=== PATIENT | male | born 1975 | race Caucasian/White ===

== ENCOUNTER 2016-10-09 09:44 | Observation (INO) ==
[2016-10-09] MEDS ORDERED: Ipratropium/Albuterol Neb 3 ML IH ONE (10:08)
[2016-10-09] MEDS ORDERED: 0.9 % Sodium Chloride 1,000 ML IVC ONE (10:08)
[2016-10-09] MEDS ORDERED: methylPREDNISolone 125 MG/2 ML VIAL IVP ONE (10:08)
[2016-10-09 10:31] LABS: ABG Base Excess 10.7 mEq/L (-2.0 to 3.0); ABG HCO3 33.3 mEQ/L (21-27); ABG PCO2 40 mmHg (35-45); ABG PH 7.54 pH Units (7.32-7.45); ABG PO2 92 mmHg (85-104); ABG TCO2 35.4 mEq/L (20-26)
[2016-10-09 10:32] LABS: ABG Oxygen Saturation 98 % (95-98); Blood Gas FiO2 28 %
[2016-10-09 10:35] LABS: Basophils % 0.2 %; Eosinophils # 0.2 K/mcL (0.0-0.6); Eosinophils % 1.7 %; Hematocrit 42.7 % (37.5-50.1); Hemoglobin 14.5 g/dL (12.9-16.9); Immature Granulocytes % 0.4 % (0-4); Lymphocytes # 2.9 K/mcL (0.6-4.6); Lymphocytes % 27.1 %; Mean Corpuscular Hemoglobin 27.9 pg (28.0-33.3); Mean Corpuscular Volume 82.3 fL (83.0-100.0); Mean Platelet Volume 11.5 fL (9.4-12.4); Monocytes # 0.9 K/mcL (0.0-1.3); Monocytes % 8.3 %; Neutrophils # 6.8 K/mcL (1.6-8.9); Platelet Count 223 K/mcL (140-400); Red Blood Count 5.19 M/mcL (4.19-5.50); Red Cell Distribution Width 13.6 % (11.5-14.5); Segmented Neutrophils % 62.3 %
[2016-10-09 10:43] LABS: INR 1.1; Prothrombin Time 11.8 Seconds (9.4-12.1)
[2016-10-09 10:46] LABS: Activated Partial Thrombo Time 35.9 Seconds (26.0-36.0)
[2016-10-09 10:49] LABS: Alanine Aminotransferase 38 Units/L (0-55); Albumin 3.6 g/dL (3.5-5.0); Alkaline Phosphatase 100 Units/L (38-126); Aspartate Amino Transferase 20 Units/L (5-34); BUN/Creatinine Ratio 14 (6-26); Bilirubin,Direct 0.1 mg/dL (0.0-0.5); Bilirubin,Indirect 0.3 mg/dL (0.0-1.2); Bilirubin,Total 0.4 mg/dL (0.2-1.2); Blood Urea Nitrogen 13 mg/dL (8-26); Calcium 9.4 mg/dL (8.6-10.8); Carbon Dioxide 28 mEq/L (19-29); Chloride 92 mEq/L (98-109); Globulin 3.5 g/dL (2.4-3.5); Glucose 83 mg/dL (70-99); Osmolality,Calculated 283 (280-300); Sodium 137 mEq/L (136-145); Total Protein 7.1 g/dL (6.0-8.3); eGFR For African Americans > 60 (> 60); eGFR For Non-African Americans > 60 (> 60)
[2016-10-09 10:51] LABS: Potassium 2.3 mEq/L (3.5-4.5)
--- NOTE | 2016-10-09 11:31 | Emergency Department Note ---
START Narrative - START START: I examined this patient and my medical decision-making was reviewed with the PRECISION LENS CENTERER AND EDGER/PA/Advanced Practice Nurse/Resident Physician. I agree with the documented findings, disposition and treatment plan as described except to the extent set forth below. ED attending note: Patient seen with physician bilingual medical assistant Staci Donald. Please see a copy of his note for details of the H&P, evaluation, management and disposition of this patient. We independently had [id number] contact with the patient Briefly: A 11-year-old male sent over from the pulmonology clinic for tachypnea at a rate of 45. Has been worked up and the CT scan shows a questionable pneumonia. Otherwise no acute findings. Patient was not wheezing nor was he hypoxic. Chest lightheaded. ED workup was negative. Patient being admitted for tachypnea etiology unclear.
[2016-10-09] MEDS ORDERED: Ondansetron 4 MG/2 ML VIAL IVP PRN (11:56)
[2016-10-09] MEDS ORDERED: Acetaminophen 325 MG TABLET PO PRN (11:56)
[2016-10-09] MEDS ORDERED: *HR* HYDROcodone/Acet 5/325 mg TABLET PO PRN (11:56)
[2016-10-09] MEDS ORDERED: Naloxone 0.4 MG/ML INJ IVP PRN (11:56)
--- NOTE | 2016-10-09 12:14 | Internal Med History&Physical ---
Date of Encounter: 10/09/16 Time of Encounter: 11:30 Assessment and Plan (1) Respiratory distress, acute Current visit: Yes Status: Acute Patient with acute on chronic respiratory distress associated with episodes of productive cough. In ED, patient was very tachypneic with RR 45, he was placed in non-rebreather mask and after receiving nebulizations, IV Solu-Medrol and oral potassium, patient is currently breathing normally and in no distress at rest. He reports that his shortness of breath and cough get worse on exertion. Chest x-ray was negative for any acute process. Given his history of exposure to inhalants and prior non-diagnostic CTA chest due to motion, I will check high resolution CT of the chest to rule out any ILD. However, his symptoms could have been exacerbated due to his severe hypokalemia. Continue albuterol/Atrovent nebulizations. No need for IV steroids at this time. Tolerating well 2L NC. (2) Cough Current visit: Yes Status: Acute Chronic cough. Plan as above (3) Hypokalemia Current visit: Yes Status: Acute Severe hypokalemia. K was 2.3. Likely secondary to use of hydrochlorothiazide and not been taking his oral potassium supplementation. Patient was taken oral potassium supplementation for many years but last month when he got his refill of all his medications, he did not receive a prescription for oral potassium. He thought his PCP stopped it. He has not had any blood tests for the past 3 months. No EKG changes. Recheck potassium at 2 PM. Patient received 60 mg of oral potassium. I will give 20 mg IV KCL Check magnesium. (4) HTN (hypertension) Current visit: Yes Status: Acute Well-controlled. Holding home dose of hydrochlorothiazide due to severe hypokalemia. Continue to monitor. Oral hydralazine as needed. Qualifiers: Hypertension type: essential hypertension Qualified Code(s): I10 - Essential (primary) hypertension Internal Medicine - H&P: HPI Chief complaint: Difficulty breathing this morning. Admitted From: Home Plans for Post Hospital Care: Home History of present illness: Mr. Damon is a 41 year old male with past medical history hypertension, and hyperlipidemia who takes HCTZ and potassium supplementation. Before [place], patient developed progressive shortness of breath at exertion and productive cough. He was treated at that time for an upper respiratory infection and sent home on prednisone and inhalers. His symptoms persisted and he was again evaluated for shortness of breath and chronic cough. He underwent a CTA of the chest that was of poor quality because of motion but showed early signs of LLL pneumonia, and was treated with azithromycin and continued using inhalers. His symptoms improved and he was feeling much better so he went back to work this past Thursday. At work, he developed difficulty in breathing after walking half a mile. His symptoms improved after he rested outside his workplace. He went to his primary care physician and was prescribed inhalers (Qvar and Proair) and Singulair. He was referred to see the knot tying operator this morning and at his office, the patient was noted to be in severe respiratory distress, having bad coug spells, and feeling as if his muscles in his hands and face were twitching and he was about to pass out. He was immediately sent to our ED. In the ED, he was tachypneic wirh RR 45 and potassium was 2.3. He was placed in a non-rebreather mask and received 60 mg oral potassium, nebulizations and IV 125 mg solumedrol. Hi symptoms improved and he is now in [facility]. Patient works at [employer] and reports being exposed to the fumes of diesel, paint, and other inhalants. He has worked there for 17 years and has never had any trouble. No recent travel. He has dogs and they are healthy. Sick contacts at home. His had him respiratory infection early September but that has resolved. Patient was taken oral potassium supplementation for many years but last month when he got his refill all his medications, he never received a prescription for oral potassium. He felt his PCP as stopped it. He has not had any blood tests for the past 3 months. Past Med Surg Social Fam HX - Past Medical History Medical history: hyperlipidemia, hypertension Psychiatric history: no psych history - Past Surgical History Surgical History: no surgical history - Social History Smoking Status: Never smoker Alcohol use: none Drug use: none - Family History Father Hx Family Cardiac Disorders: Yes (CAD) Internal Medicine - H&P: Meds Azithromycin [Zithromax] 250 mg PO Q24H #5 tablet 09/08/16 [Rx] Hydrochlorothiazide 25 mg PO DAILY 09/08/16 [History] Potassium Chloride [K-Tab ER] 20 meq PO DAILY 09/08/16 [History] Simvastatin [Zocor] 40 mg PO HS 09/08/16 [History] Albuterol Sulfate [Proair Hfa] 2 puff IH Q4H PRN 10/09/16 [History] Beclomethasone Diprop 80mcg [Qvar 80 mcg] 1 puff IH BID 10/09/16 [History] Montelukast [Singulair] 10 mg PO DAILY 10/09/16 [History] Allergies No Known Allergies Allergy (Verified 09/08/16 16:18) All Systems PM: A 10-system review of systems was performed and is negative for pertinent findings except as documented above in the HPI. - Constitutional Vitals: Temp Pulse Resp BP Pulse Ox 0 F L 93 17 131/79 99 10/09/16 11:48 10/09/16 11:02 10/09/16 11:48 10/09/16 11:48 10/09/16 11:02 General appearance: Present: cooperative, A&O X 3, pleasant, no acute distress, answers questions appropriately Exam: Patient is speaking full sentences. He had a few cough spells. - Eye Eye exam: Present: PERRL, sclera anicteric - ENT ENT exam: Present: mucous membranes moist - Neck Neck exam general surgery: Present: supple, trachea midline. Absent: lymphadenopathy - Respiratory Additional comments: Diminished air entry bilaterally with Mild diffuse wheezes. No crackles. - Cardiovascular Cardiovascular exam: Present: RRR. Absent: systolic murmur - GI/Abdominal GI/Abdominal exam: Present: normal bowel sounds, soft. Absent: distended, tenderness - Extremities Exam Extremities exam: Present: radial pulses palpable and symetrical. Absent: pedal edema - Back Exam Back exam: Absent: CVA tenderness (L), CVA tenderness (R) - Neurological Exam Neurological exam: Present: alert, oriented X3, no focal deficits, strengths equal and symetr throughout. Absent: facial droop, speech deficit - Skin Skin exam: Present: dry. Absent: rash Internal Med - H&P Results - Labs CBC & Chem 7: 10/09/16 10:27 10/09/16 10:27
[2016-10-09] MEDS ORDERED: Potassium Chloride 20 MEQ, Lidocaine 1% 2 ML in D5% in Water 250 ML IVPB ONE (12:30)
[2016-10-09] MEDS ORDERED: hydrALAZINE 10 MG TABLET PO PRN (12:41)
[2016-10-09] MEDS: Ipratropium/Albuterol Neb 3 ML IH SCH ×4 (12:46→23:10)
[2016-10-09] MEDS ORDERED: Potassium Chloride 40 MEQ, Lidocaine 1% 2 ML in D5% in Water 500 ML IVPB ONE (14:32)
[2016-10-09 14:34] LABS: Magnesium 1.9 mg/dL (1.6-2.6)
--- NOTE | 2016-10-09 17:23 | Emergency Department Note ---
Disposition Clinical Impression: Dyspnea on exertion, Hypokalemia Disposition: Admitted As Inpatient Condition: Good General Adult HPI - General Chief complaint: ED Shortness of Breath/Dyspnea Stated complaint: KIP Time Seen by Provider: 10/09/16 09:52 Source: patient, family, other ([employer] Supervisor) Mode of arrival: private vehicle Limitations: no limitations Nursing Notes Reviewed: Yes Vital Signs Reviewed: Yes - History of Present Illness Pt Subjective Complaint: "Can't catch my breath", "Spasms in hands and tingling in face" Onset (ago): Just CARE SERVICES MANAGER (Patient had an appointment with the Yard General Car Supervisor this AM. After walking from the parking lot to the office he bacame very short of breath. When the award clerk saw him he sent the patient to the ER for evaluation as the patient was in respiratory distress.) Location: other (no pain, just KIP) Radiation: non-radiation Pain Scale: 0 Quality: other (cramping in hands - intermittently) Consistency: intermittent Improves with: rest Worsens with: other (walking - any exertion) Associated symptoms: Reports: shortness of breath. Denies: confusion, chest pain, cough, diaphoresis, fever/chills, headaches, loss of appetite, malaise, nausea/vomiting, rash, seizure, syncope, weakness Treatments Prior to Arrival: other ("cough and mild KIP at [place] time, diagnosed with Bronchitis, given meds and thought was getting better. Tried to go back to work on Thursday. Walked from parking lot to job site and became very short of breath. Saw PCP again. Was given more meds and a referral to see [employer] Supervisor. ") - Related Data Home Medications Medication Instructions Recorded Confirmed Hydrochlorothiazide 50 mg PO DAILY 09/08/16 10/09/16 Potassium Chloride [K-Tab ER] 10 meq PO DAILY 09/08/16 10/09/16 Simvastatin [Zocor] 10 mg PO HS 09/08/16 10/09/16 Albuterol Sulfate [Proair Hfa] 2 puff IH Q4H PRN 10/09/16 10/09/16 Beclomethasone Diprop 80mcg [Qvar 1 puff IH BID 10/09/16 10/09/16 80 mcg] Montelukast [Singulair] 10 mg PO DAILY 10/09/16 10/09/16 Previous Rx's Medication Instructions Recorded Azithromycin [Zithromax] 250 mg PO Q24H #5 tablet 09/08/16 Allergies Allergy/AdvReac Type Severity Reaction Status Date / Time No Known Allergies Allergy Verified 09/08/16 16:18 All systems ED: reviewed and negative except as stated. Constitutional: Denies: fever, chills, weakness ENT ED: Denies: throat pain, congestion, dysphagia Cardiovascular: Reports: dyspnea on exertion, orthopnea ("sometimes"). Denies: chest pain, palpitations, edema, syncope Respiratory: Reports: dyspnea. Denies: wheezes, hemoptysis, stridor Gastrointestinal: Denies: abdominal pain, nausea, vomiting, diarrhea Musculoskeletal: Denies: back pain, neck pain Integumentary: Denies: rash Neurological: Denies: headache, weakness, confusion, abnormal gait, vertigo Hematological/Lymphatic: Denies: easy bleeding, easy bruising Past Medical History - Past Medical History Attestation: Yes The following information was validated with the patient. Source: patient Medical history: Reports: hyperlipidemia, hypertension Surgical history: Reports: no surgical history Psychiatric history: Reports: no psych history - Social History Smoking Status: Never smoker Smokeless Tobacco Status: No Alcohol use: Reports: none Drug use: Reports: none Physical Exam - General Limitations: no limitations General appearance: alert, in distress (tachypneic) - Head Head exam: atraumatic, normocephalic, normal inspection - Eye Eye exam: Present: normal appearance, PERRL, EOMI. Absent: scleral icterus, conjunctival injection, periorbital swelling - ENT ENT exam: mucous membranes dry - Neck Neck exam: Present: normal inspection, full ROM, trachea midline. Absent: meningismus, lymphadenopathy - Chest Chest inspection: Present: normal inspection, symmetric chest wall rise. Absent : tenderness - Respiratory Respiratory exam: Present: normal lung sounds bilaterally, respiratory distress. Absent: wheezes, stridor, accessory muscle use, prolonged expiratory phase - Cardiovascular Cardiovascular exam: Present: normal rhythm, tachycardia, normal heart sounds. Absent: systolic murmur, diastolic murmur - Extremities Exam Extremities exam: Present: normal inspection, full ROM, normal capillary refill. Absent: pedal edema - Back Exam Back exam: Present: normal inspection, full ROM. Absent: tenderness - Neurological Exam Neurological exam: Present: alert, oriented X3, CN II-XII intact, normal gait - Psychiatric Psychiatric exam: Present: normal affect, normal mood - Skin Skin exam: Present: warm, dry, intact, normal color Course Course Narrative: Patient has had intermittent KIP since an illness in August. He has tried numerous medications. He now has recurrent [place] - with mild exertion (walking). He was sent here from the Yard General Car Supervisor's office. Labs show low potassium and Resp Alkylosis. CXR is normal. Patient was placed on a non-rebreather upon arrival due to his tachypnea. This provided significant improvement. He had a carpal spasm when the BP cuff inflated. Once it was deflated the spasm subsided. This was most likely due to his low K. He states that he takes HCTZ - has done so for many years - and used to also take K, but the last three times he went to the Pharmacy, there was no refill on the Potassium. He was planning to ask his PCP about this but forgot. Patient received a duoneb treatment and upon re-check he was sitting up, smiling , resting very comfortably and looked like an entirely different person. The [employer] Car Supervisor stopped by the ER to check on the patient. He recommended Echo and Obs. Patient was also seen by Dr. Barajas - ED attending. We agree with the [employer] Supervisor's recommendation. Patient will be admitted. Vital Signs Temperature 97.7 F 10/09/16 09:48 Pulse Rate 103 10/09/16 09:48 Respiratory Rate 28 10/09/16 09:48 Blood Pressure 0/0 10/09/16 09:48 O2 Sat by Pulse Oximetry 100 10/09/16 09:48 Temperature 98.0 F 10/09/16 16:21 Pulse Rate 115 10/09/16 16:21 Respiratory Rate 18 10/09/16 17:01 Blood Pressure 108/66 10/09/16 16:21 O2 Sat by Pulse Oximetry 92 L 10/09/16 17:01 Oxygen Delivery Oxygen Delivery Nasal Cannula Medical Decision Making - Medical Records Medical records reviewed: Yes I reviewed the patient's medical records. - Lab Data Lab results reviewed: Yes I reviewed the patient's lab results. Lab results narrative: Laboratory Last Values WBC 10.8 K/mcL (4.3-11.1) 10/09/16 10:27 RBC 5.19 M/mcL (4.19-5.50) 10/09/16 10:27 Hgb 14.5 g/dL (12.9-16.9) 10/09/16 10:27 Hct 42.7 % (37.5-50.1) 10/09/16 10:27 MCV 82.3 fL (83.0-100.0) L 10/09/16 10:27 MCH 27.9 pg (28.0-33.3) L 10/09/16 10:27 MCHC 34.0 g/dL (31.6-35.5) 10/09/16 10:27 RDW 13.6 % (11.5-14.5) 10/09/16 10:27 Plt Count 223 K/mcL (140-400) 10/09/16 10:27 MPV 11.5 fL (9.4-12.4) 10/09/16 10:27 Immature Gran % 0.4 % (0-4) 10/09/16 10:27 Seg Neutrophils % 62.3 % 10/09/16 10:27 Lymphocytes % 27.1 % 10/09/16 10:27 Monocytes % 8.3 % 10/09/16 10:27 Eosinophils % 1.7 % 10/09/16 10:27 Basophils % 0.2 % 10/09/16 10: Neutrophils # 6.8 K/mcL (1.6-8.9) 10/09/16 10:27 Lymphocytes # 2.9 K/mcL (0.6-4.6) 10/09/16 10:27 Monocytes # 0.9 K/mcL (0.0-1.3) 10/09/16 10:27 Eosinophils # 0.2 K/mcL (0.0-0.6) 10/09/16 10:27 Basophils # 0.0 K/mcL (0.0-0.2) 10/09/16 10:27 PT 11.8 Seconds (9.4-12.1) 10/09/16 10:27 INR 1.1 10/09/16 10:27 APTT 35.9 Seconds (26.0-36.0) 10/09/16 10:27 D-Dimer 252 ng/mLFEU (0-500) 10/09/16 10:27 ABG pH 7.54 pH Units (7.32-7.45) H 10/09/16 10:28 ABG pCO2 40 mmHg (35-45) 10/09/16 10:28 ABG pO2 92 mmHg (85-104) 10/09/16 10:28 ABG HCO3 33.3 mEQ/L (21-27) H 10/09/16 10:28 ABG Total CO2 35.4 mEq/L (20-26) H 10/09/16 10:28 ABG O2 Saturation 98 % (95-98) 10/09/16 10:28 ABG Base Excess 10.7 mEq/L (-2.0 to 3.0) H 10/09/16 10:28 Blood Gas Modality NC 10/09/16 10:28 Inspired O2 28 % 10/09/16 10:28 Sodium 137 mEq/L (136-145) 10/09/16 10:27 Potassium 2.5 mEq/L (3.5-4.5) L* 10/09/16 13:42 Chloride 92 mEq/L (98-109) L 10/09/16 10:27 Carbon Dioxide 28 mEq/L (19-29) 10/09/16 10:27 BUN 13 mg/dL (8-26) 10/09/16 10:27 Creatinine 0.96 mg/dL (0.72-1.25) 10/09/16 10:27 Est GFR ( Amer) > 60 (> 60) 10/09/16 10:27 Est GFR (Non-Af Amer) > 60 (> 60) 10/09/16 10:27 BUN/Creatinine Ratio 14 (6-26) 10/09/16 10:27 Glucose 83 mg/dL (70-99) 10/09/16 10:27 Calculated Osmolality 283 (280-300) 10/09/16 10:27 Calcium 9.4 mg/dL (8.6-10.8) 10/09/16 10:27 Magnesium 1.9 mg/dL (1.6-2.6) 10/09/16 10:27 Total Bilirubin 0.4 mg/dL (0.2-1.2) 10/09/16 10:27 Direct Bilirubin 0.1 mg/dL (0.0-0.5) 10/09/16 10:27 Indirect Bilirubin 0.3 mg/dL (0.0-1.2) 10/09/16 10:27 AST 20 Units/L (5-34) 10/09/16 10:27 ALT 38 Units/L (0-55) 10/09/16 10:27 Alkaline Phosphatase 100 Units/L (38-126) 10/09/16 10:27 Troponin I 0.00 ng/mL (0-0.03) 10/09/16 10:27 B-Natriuretic Peptide < 10 pg/mL (0-100) 10/09/16 10:27 Serum Total Protein 7.1 g/dL (6.0-8.3) 10/09/16 10:27 Albumin 3.6 g/dL (3.5-5.0) 10/09/16 10:27 Globulin 3.5 g/dL (2.4-3.5) 10/09/16 10:27 Albumin/Globulin Ratio 1.0 (1.1-2.2) L 10/09/16 10:27 Result diagrams: 10/09/16 10:27 10/09/16 13:42 Lab Results 10/09/16 10/09/16 10/09/16 Range/Units 10:27 10:27 10:27 WBC 10.8 (4.3-11.1) K/mcL RBC 5.19 (4.19-5.50) M/mcL Hgb 14.5 (12.9-16.9) g/dL Hct 42.7 (37.5-50.1) % MCV 82.3 L (83.0-100.0) fL MCH 27.9 L (28.0-33.3) pg MCHC 34.0 (31.6-35.5) g/dL RDW 13.6 (11.5-14.5) % Plt Count 223 (140-400) K/mcL MPV 11.5 (9.4-12.4) fL Immature Gran % 0.4 (0-4) % Seg Neutrophils % 62.3 % Lymphocytes % 27.1 % Monocytes % 8.3 % Eosinophils % 1.7 % Basophils % 0.2 % Neutrophils # 6.8 (1.6-8.9) K/mcL Lymphocytes # 2.9 (0.6-4.6) K/mcL Monocytes # 0.9 (0.0-1.3) K/mcL Eosinophils # 0.2 (0.0-0.6) K/mcL Basophils # 0.0 (0.0-0.2) K/mcL PT (9.4-12.1) Seconds INR APTT (26.0-36.0) Seconds D-Dimer (0-500) ng/mLFEU ABG pH (7.32-7.45) pH Units ABG pCO2 (35-45) mmHg ABG pO2 (85-104) mmHg ABG HCO3 (21-27) mEQ/L ABG Total CO2 (20-26) mEq/L ABG O2 Saturation (95-98) % ABG Base Excess (-2.0 to 3.0) mEq/L Blood Gas Modality Inspired O2 % Sodium 137 (136-145) mEq/L Potassium 2.3 L* (3.5-4.5) mEq/L Chloride 92 L (98-109) mEq/L Carbon Dioxide 28 (19-29) mEq/L BUN 13 (8-26) mg/dL Creatinine 0.96 (0.72-1.25) mg/dL Est GFR ( Amer) > 60 (> 60) Est GFR (Non-Af Amer) > 60 (> 60) BUN/Creatinine Ratio 14 (6-26) Glucose 83 (70-99) mg/dL Calculated Osmolality 283 (280-300) Calcium 9.4 (8.6-10.8) mg/dL Magnesium 1.9 (1.6-2.6) mg/dL Total Bilirubin 0.4 (0.2-1.2) mg/dL Direct Bilirubin 0.1 (0.0-0.5) mg/dL Indirect Bilirubin 0.3 (0.0-1.2) mg/dL AST 20 (5-34) Units/L ALT 38 (0-55) Units/L Alkaline Phosphatase 100 (38-126) Units/L Troponin I 0.00 (0-0.03) ng/mL B-Natriuretic Peptide (0-100) pg/mL Serum Total Protein 7.1 (6.0-8.3) g/dL Albumin 3.6 (3.5-5.0) g/dL Globulin 3.5 (2.4-3.5) g/dL Albumin/Globulin Ratio 1.0 L (1.1-2.2) 10/09/16 10/09/16 10/09/16 Range/Units 10:27 10:27 10:28 WBC (4.3-11.1) K/mcL RBC (4.19-5.50) M/mcL Hgb (12.9-16.9) g/dL Hct (37.5-50.1) % MCV (83.0-100.0) fL MCH (28.0-33.3) pg MCHC (31.6-35.5) g/dL RDW (11.5-14.5) % Plt Count (140-400) K/mcL MPV (9.4-12.4) fL Immature Gran % (0-4) % Seg Neutrophils % % Lymphocytes % % Monocytes % % Eosinophils % % Basophils % % Neutrophils # (1.6-8.9) K/mcL Lymphocytes # (0.6-4.6) K/mcL Monocytes # (0.0-1.3) K/mcL Eosinophils # (0.0-0.6) K/mcL Basophils # (0.0-0.2) K/mcL PT 11.8 (9.4-12.1) Seconds INR 1.1 APTT 35.9 (26.0-36.0) Seconds D-Dimer 252 (0-500) ng/mLFEU ABG pH 7.54 H (7.32-7.45) pH Units ABG pCO2 40 (35-45) mmHg ABG pO2 92 (85-104) mmHg ABG HCO3 33.3 H (21-27) mEQ/L ABG Total CO2 35.4 H (20-26) mEq/L ABG O2 Saturation 98 (95-98) % ABG Base Excess 10.7 H (-2.0 to 3.0) mEq/L Blood Gas Modality NC Inspired O2 28 % Sodium (136-145) mEq/L Potassium (3.5-4.5) mEq/L Chloride (98-109) mEq/L Carbon Dioxide (19-29) mEq/L BUN (8-26) mg/dL Creatinine (0.72-1.25) mg/dL Est GFR ( Amer) (> 60) Est GFR (Non-Af Amer) (> 60) BUN/Creatinine Ratio (6-26) Glucose (70-99) mg/dL Calculated Osmolality (280-300) Calcium (8.6-10.8) mg/dL Magnesium (1.6-2.6) mg/dL Total Bilirubin (0.2-1.2) mg/dL Direct Bilirubin (0.0-0.5) mg/dL Indirect Bilirubin (0.0-1.2) mg/dL AST (5-34) Units/L ALT (0-55) Units/L Alkaline Phosphatase (38-126) Units/L Troponin I (0-0.03) ng/mL B-Natriuretic Peptide < 10 (0-100) pg/mL Serum Total Protein (6.0-8.3) g/dL Albumin (3.5-5.0) g/dL Globulin (2.4-3.5) g/dL Albumin/Globulin Ratio (1.1-2.2) - Radiology Data Radiology results reviewed: Yes I reviewed the patient's radiology results. CXR read by Rad as normal
[2016-10-09] MEDS ORDERED: *HR* LORazepam 2 MG/ML VIAL IVP PRN (17:45)
[2016-10-09] MEDS: GuaiFENesin/Codeine Oral Soln 5 ML UDC PO PRN (21:45)
[2016-10-09] MEDS: Potassium Chloride Elixir 20 MEQ/15 ML UDC PO SCH (21:46)
[2016-10-10] MEDS: Ipratropium/Albuterol Neb 3 ML IH SCH ×5 (04:19→20:09)
[2016-10-10 06:14] LABS: Basophils % 0.1 %; Hematocrit 39.4 % (37.5-50.1); Immature Granulocytes % 0.4 % (0-4); Lymphocytes # 1.1 K/mcL (0.6-4.6); Lymphocytes % 6.6 %; Mean Corpuscular Hemoglobin 27.5 pg (28.0-33.3); Mean Corpuscular Volume 83.5 fL (83.0-100.0); Mean Platelet Volume 11.6 fL (9.4-12.4); Monocytes # 0.7 K/mcL (0.0-1.3); Monocytes % 4.3 %; Neutrophils # 14.3 K/mcL (1.6-8.9); Platelet Count 230 K/mcL (140-400); Red Blood Count 4.72 M/mcL (4.19-5.50); Segmented Neutrophils % 88.6 %
[2016-10-10 06:30] LABS: BUN/Creatinine Ratio 13 (6-26); Blood Urea Nitrogen 13 mg/dL (8-26); Calcium 9.2 mg/dL (8.6-10.8); Carbon Dioxide 27 mEq/L (19-29); Chloride 99 mEq/L (98-109); Glucose 277 mg/dL (70-99); Magnesium 1.9 mg/dL (1.6-2.6); Osmolality,Calculated 298 (280-300); Sodium 139 mEq/L (136-145); eGFR For African Americans > 60 (> 60); eGFR For Non-African Americans > 60 (> 60)
[2016-10-10] MEDS ORDERED: Ondansetron 4 MG/2 ML VIAL IVP PRN (09:18)
[2016-10-10] MEDS ORDERED: 0.9 % Sodium Chloride w KCl 40 MEQ/1,000 ML MLS IVC SCH (09:30)
[2016-10-10] MEDS: Potassium Chloride Elixir 20 MEQ/15 ML UDC PO SCH (09:59)
--- NOTE | 2016-10-10 15:35 | Electrocardiograph Report ---
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
--- NOTE | 2016-10-10 16:19 | Discharge Summary ---
Date of Encounter: 10/10/16 Time of Encounter: 11:45 - Discharge Diagnosis (1) Hypokalemia Priority: Primary Status: Acute Comments: Nearly resolved. Appears to be as a result of a miscommunication as patient got a refill of his HCTZ but not of his potassium supplementation. Magnesium levels normal. (2) Cough Priority: Primary Status: Chronic Comments: Patient stating he has had a cough since around [place] time. He currently denies shortness of breath above his norm. He is tolerating room air well. Chest x-ray negative. Chest CT negative for acute processes. On examination, lungs clear to auscultation bilaterally. Recommend follow-up outpatient. (3) HTN (hypertension) Priority: Secondary Status: Chronic Comments: Controlled, recommend continued follow-up outpatient. Qualifiers: Hypertension type: essential hypertension Qualified Code(s): I10 - Essential (primary) hypertension (4) Respiratory distress, acute Priority: Primary Status: Resolved Comments: Patient denied shortness of breath above his normal time of discharge. He did endorse a nonproductive cough. Lungs clear to auscultation bilaterally with good aeration. Follow-up outpatient. - Discharge Medications Prescriptions: GuaiFENesin/Codeine [ROBITUSSIN w/CODEINE] 5 ml PO Q6HR PRN #50 ml PRN Reason: Cough Potassium Chloride [K-Tab ER] 20 meq PO DAILY #30 tablet.er Home Medications: Azithromycin [Zithromax] 250 mg PO Q24H #5 tablet 09/08/16 [Rx] Hydrochlorothiazide 50 mg PO DAILY 09/08/16 [History] Simvastatin [Zocor] 10 mg PO HS 09/08/16 [History] Albuterol Sulfate [Proair Hfa] 2 puff IH Q4H PRN 10/09/16 [History] Beclomethasone Diprop 80mcg [QVAR 80 mcg] 1 puff IH BID 10/09/16 [History] Montelukast [Singulair] 10 mg PO DAILY 10/09/16 [History] GuaiFENesin/Codeine [ROBITUSSIN w/CODEINE] 5 ml PO Q6HR PRN #50 ml 10/10/16 [Rx] Potassium Chloride [K-Tab ER] 20 meq PO DAILY #30 tablet.er 10/10/16 [Rx] Allergies/Adverse Reactions: Allergies No Known Allergies Allergy (Verified 09/08/16 16:18) Procedures/tests Complete & Pending: Procedures Performed prior 72 hours Category Date Time Status CT chest wo con [CT] Routine Cat Scan 10/09/16 14:30 Completed Date of admission: 10/09/16 11:24 Primary care physician: Marcie Rose CNP Discharging clinician: Lina King Anticipated date of discharge: 10/10/16 - Patient Status Disposition: Home, Self-Care Condition: Good Functional capacity at discharge: independent ambulation Overall status at discharge: patient is back to baseline - Discharge Instructions Follow Up With: Marcie Rose CNP [Primary Care Provider] - Forms: ED Satisfaction Letter Additional Instructions: Follow-up with primary care provider within one to 2 weeks - Diet and Activity Activity: increase activity as tolerated Diet: low fat, low cholesterol, low salt diet Hospital course: Mr. Damon is a 41 year old male with past medical history of hypertension and hyperlipidemia. Patient takes HCTZ and potassium supplementation. Before , patient had developed progressive shortness of breath with exertion as well as a productive cough. He was treated for an upper respiratory tract infection with prednisone and inhalers. His symptoms persisted and he was again seen by his primary care provider for shortness of breath and chronic cough. He then had a CTA of the chest that showed early left lower lobe pneumonia and he was treated with azithromycin and inhalers. Patient was feeling better so he went back to work this past Thursday. While at work, he developed difficulty breathing after walking that improved with rest. He went to see his primary care provider and was started on Qvar and pro-air as well as Singulair. 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 He was sent immediately to the emergency department. Upon presentation, patient was tachypneic with a respiratory rate of 45 and his potassium was 2.3. Potassium was repleted, he was given nebulized treatments as well as Solu-Medrol and was admitted to the hospitalist service for further evaluation and management. Chest x-ray negative. Chest CT negative for acute processes. Patient was admitted and observed over the course of 2 days. Patient's potassium slowly ana. Patient denied pain or shortness of breath throughout this admission. On examination, his lungs were clear to auscultation bilaterally. He continued to have an intermittent, nonproductive, dry cough that responded well to guaifenesin with codeine. It appears as if there was a miscommunication between him and his primary care provider as the patient thought that he was taken off his potassium supplements. He was placed back on supplementation upon discharge. He was discharged home in stable condition with close outpatient follow-up recommended. ITS Impressions Chest X-Ray 10/09/16 10:08 IMPRESSION: 1. No active pulmonary disease. D/ / Mark Hinson MD / Mark Hinson MD Interpreting Provider: Mark Hinson MD Chest CT 10/09/16 14:30 IMPRESSION: No consolidation. Bibasilar streaky opacities left greater than right compatible atelectasis although infiltrates not entirely excluded. D/ / Chilango Rand MD / Chilango Rand MD Interpreting Provider: Chilango Rand MD - Time Spent with Patient Total time spent providing and/or coordinating discharge services: - Constitutional Vitals: Temp Pulse Resp BP Pulse Ox 98.4 F 99 16 116/72 97 10/10/16 15:23 10/10/16 15:23 10/10/16 15:54 10/10/16 15:23 10/10/16 15:54 General appearance: Present: cooperative, A&O X 3, pleasant, no acute distress, answers questions appropriately - Head Head exam: Present: atraumatic, normocephalic - Eye Eye exam: Present: PERRL, conjuntiva pink, sclera anicteric Pupils: Present: PERRL - Neck Neck exam general surgery: Present: supple, trachea midline. Absent: lymphadenopathy - Respiratory Respiratory exam: Present: CTAB. Absent: accessory muscle use, rales, respiratory distress, rhonchi, wheezes - Cardiovascular Cardiovascular exam: Present: RRR, +S1, +S2. Absent: diastolic murmur, gallop, rubs, systolic murmur - GI/Abdominal GI/Abdominal exam: Present: normal bowel sounds, soft, no peritoneal signs. Absent: distended, tenderness - Extremities Exam Extremities exam: Present: warm, radial pulses palpable and symetrical. Absent : calf tenderness, cyanotic, pedal edema - Neurological Exam Neurological exam: Present: alert, CN II-XII intact, normal gait, oriented X3, no focal deficits, strengths equal and symetr throughout. Absent: pronater drift, facial droop, speech deficit - Skin Skin exam: Present: dry, intact, normal color, warm
[2016-10-10] MEDS: 0.9 % Sodium Chloride w KCl 40 MEQ/1,000 ML MLS IVC SCH (19:50)
[2016-10-10] MEDS: GuaiFENesin/Codeine Oral Soln 5 ML UDC PO PRN (21:56)
[2016-10-11] MEDS: Ipratropium/Albuterol Neb 3 ML IH SCH ×4 (02:20→12:01)
[2016-10-11] MEDS: 0.9 % Sodium Chloride w KCl 40 MEQ/1,000 ML MLS IVC SCH (04:13)
[2016-10-11 06:46] VITALS: BP 123/74
[2016-10-11] MEDS: GuaiFENesin/Codeine Oral Soln 5 ML UDC PO PRN (07:23)
[2016-10-11 08:54] LABS: Basophils % 0.2 %; Eosinophils # 0.1 K/mcL (0.0-0.6); Eosinophils % 1.1 %; Hematocrit 38.9 % (37.5-50.1); Hemoglobin 12.7 g/dL (12.9-16.9); Immature Granulocytes % 0.3 % (0-4); Lymphocytes # 4.1 K/mcL (0.6-4.6); Lymphocytes % 35.4 %; Mean Corpuscular HGB Conc 32.6 g/dL (31.6-35.5); Mean Corpuscular Hemoglobin 28.5 pg (28.0-33.3); Mean Corpuscular Volume 87.4 fL (83.0-100.0); Mean Platelet Volume 10.9 fL (9.4-12.4); Monocytes # 0.6 K/mcL (0.0-1.3); Monocytes % 4.8 %; Neutrophils # 6.7 K/mcL (1.6-8.9); Platelet Count 177 K/mcL (140-400); Red Blood Count 4.45 M/mcL (4.19-5.50); Red Cell Distribution Width 14.6 % (11.5-14.5); Segmented Neutrophils % 58.2 %
[2016-10-11 09:08] LABS: BUN/Creatinine Ratio 19 (6-26); Blood Urea Nitrogen 16 mg/dL (8-26); Calcium 8.4 mg/dL (8.6-10.8); Carbon Dioxide 27 mEq/L (19-29); Chloride 108 mEq/L (98-109); Glucose 95 mg/dL (70-99); Osmolality,Calculated 299 (280-300); Potassium 3.4 mEq/L (3.5-4.5); Sodium 144 mEq/L (136-145); eGFR For African Americans > 60 (> 60); eGFR For Non-African Americans > 60 (> 60)
--- NOTE | 2016-10-11 10:12 | Internal Med Progress Note ---
Date of Encounter: 10/11/16 Time of Encounter: 08:35 - Assessment and plan (1) Hypokalemia Current Visit: Yes Status: Acute Assessment and plan: Improved potassium levels. Continue oral supplementation. Patient stable for discharge today. (2) HTN (hypertension) Current Visit: Yes Status: Chronic Assessment and plan: Blood pressure is well controlled at this time. Qualifiers: Hypertension type: essential hypertension Qualified Code(s): I10 - Essential (primary) hypertension - Subjective Interval history: Patient is feeling much better today. Denies any new complaints at this time. Tolerating diet well. - Constitutional Vitals: Temp Pulse Resp BP Pulse Ox 97.8 F 93 18 123/74 96 10/11/16 06:39 10/11/16 06:39 10/11/16 08:09 10/11/16 06:39 10/11/16 08:09 General appearance: Present: cooperative, A&O X 3, pleasant, no acute distress, answers questions appropriately - Respiratory Respiratory exam: Present: CTAB. Absent: accessory muscle use, rales, rhonchi, wheezes - Cardiovascular Cardiovascular exam: Present: RRR, +S1, +S2. Absent: diastolic murmur, gallop, rubs, systolic murmur - GI/Abdominal GI/Abdominal exam: Present: normal bowel sounds, soft, no peritoneal signs. Absent: distended, tenderness - Extremities Exam Extremities exam: Present: warm, radial pulses palpable and symetrical. Absent : calf tenderness, cyanotic, pedal edema Internal Medicine: Result - Labs CBC & Chem 7: 10/11/16 08:25 10/11/16 08:25 Labs: Short CBC 10/11/16 Range/Units 08:25 WBC 11.6 H (4.3-11.1) K/mcL Hgb 12.7 L (12.9-16.9) g/dL Hct 38.9 (37.5-50.1) % Plt Count 177 (140-400) K/mcL Neutrophils # 6.7 (1.6-8.9) K/mcL BMP 10/10/16 10/10/16 10/11/16 13:24 17:02 08:25 Sodium 144 Potassium 3.1 L 2.9 L 3.4 L Chloride 108 Carbon Dioxide 27 BUN 16 Creatinine 0.84 Glucose 95 Calcium 8.4 L - ABG Interpretation ABG results: ABG ABG pH 7.54 pH Units (7.32-7.45) H 10/09/16 10:28 ABG pCO2 40 mmHg (35-45) 10/09/16 10:28 ABG pO2 92 mmHg (85-104) 10/09/16 10:28 ABG O2 Saturation 98 % (95-98) 10/09/16 10:28 PT/INR, D-dimer PT 11.8 Seconds (9.4-12.1) 10/09/16 10:27 D-Dimer 252 ng/mLFEU (0-500) 10/09/16 10:27 Consult Discharge Plan - Plan Additional Instructions: Follow-up with primary care provider within one to 2 weeks Referrals: Marcie Rose, [employer] [Primary Care Provider] - Prescriptions: GuaiFENesin/Codeine [ROBITUSSIN w/CODEINE] 5 ml PO Q6HR PRN #50 ml PRN Reason: Cough Potassium Chloride [K-Tab ER] 20 meq PO DAILY #30 tablet.er - Attending Attestation This document has been at least partially created by [employer] recognition technology by Dr. Karimi. Errors in grammar, wording or other phrases may exist. If errors are found after the documentation is signed, they will be addressed individually in the addendum section of this document when appropriate.
== END 2016-10-11 12:28 | disposition home or self-care (01) ==
LOC: EMEROO 09:44 → 3BNU 09:44 → SUATTDRO 11:24 → 3BNU 12:04
PROVIDERS: ADMIT Internal Medicine; ATTEND Internal Medicine